=== PATIENT | male | born 2000 ===

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

== ENCOUNTER 2019-07-13 00:50 | Emergency (ER) | payer BC ==
--- NOTE | 2019-07-13 03:37 | ED ---
Head Injury - HPI Summary HPI Summary: This pt is a 19 Y/O M presenting to [facility] with a CC of a head injury that is currently rated a 2/10 in severity that occurred during ice skating. The fall was witnessed by his friend who states that he fell sideways and his head ricocheted off the ground. He states that he stopped skating after the incident and then started skating again afterwards. He denies any nausea, vomiting, decreased sensations, photophobia, and confusion. He states that he is able to remember the entire event and states that he did not lose any consciousness. He states that he isnt having any balance issues. His friend states that initially the pt was unable to hold a conversation. He has no aggravating or alleviating factors. He has no pertinent PMHx or FHx. He states that he occasionally drinks alcohol on the weekends. - History Of Current Complaint Chief Complaint: EDHeadInjury Stated Complaint: HEAD LAC PER PT Hx Obtained From: Patient, Family/Forestry Pilot - friend Mechanism Of Injury: Blunt Trauma, Fall From A Standing Position Onset/Duration: Started Hours Ago, Still Present Onset of Pain: Immediate Severity Currently: Mild Severity Initially: Moderate Pain Intensity: 2 Pain Scale Used: 0-10 Numeric Location of Head Injury: Frontal Location: Discrete At: Aggravating Factor(s): Other: - nothing Alleviating Factor(s): Other: - nothing Associated Signs And Symptoms: Negative - nausea, vomiting, decreased sensations , photophobia, and confusion, Memory Loss, Headache - Allergies/Home Medications Allergies/Adverse Reactions: Allergies Allergy/AdvReac Type Severity Reaction Status Date / Time No Known Allergies Allergy Verified 07/11/17 12:07 PMH/Surg Hx/FS Hx/Imm Hx Previously Healthy: Yes Endocrine/Hematology History: Denies: Hx Diabetes Cardiovascular History: Denies: Hx Hypertension Sensory History: Denies: Hx Contacts or Glasses, Hx Legally Blind, Hx Deafness, Hx Hearing Aid Opthamlomology History: Denies: Hx Contacts or Glasses, Hx Legally Blind Psychiatric History: Reports: Hx Anxiety, Hx Depression, Hx Community Mental Health Tx - Counselor at [facility] and Private therapist in [place] Denies: Hx Eating Disorder, Hx of Violent Episodes Against Others - Surgical History Surgical History: None - Immunization History Date of Tetanus Vaccine: utd Date of Influenza Vaccine: none Immunizations Up to Date: Yes Infectious Disease History: No Infectious Disease History: Denies: Traveled Outside the US in Last 30 Days - Family History Known Family History: Positive: Other - depression Negative: Cardiac Disease, Hypertension - Social History Occupation: Student - [employer] Lives: Dormitory/Roommates Alcohol Use: Occasionally Alcohol Amount: weekends Hx Substance Use: Yes Substance Use Type: Reports: Marijuana Hx Tobacco Use: No Smoking Status (MU): Never Smoked Tobacco Review of Systems Positive: Other - confusion Negative: Photophobia Negative: Vomiting, Nausea Positive: Headache. Negative: Weakness, Numbness, Syncope All Other Systems Reviewed And Are Negative: Yes Physical Exam - Summary Physical Exam Summary: Appearance: Well-appearing, Well-nourished, lying in bed comfortably Skin: Warm, dry, no obvious rash, superficial 1 cm laceration about the R eyebrow Eyes: sclera anicteric, no conjunctival pallor ENT: mucous membranes moist, pharynx appears normal Neck: Supple, nontender Respiratory: Clear to auscultation, no signs of respiratory distress Cardiovascular: Normal S1, S2. No murmurs. Normal distal pulses in tibial and radial bilaterally. Abdomen: Soft, nontender, normal active bowel sounds present Musculoskeletal: Normal, Strength/ROM Intact Neurological: A&Ox3, awake and alert, mentation is normal, speech is fluent and appropriate Psychiatric: affect is normal, does not appear anxious or depressed Triage Information Reviewed: Yes Vital Signs On Initial Exam: Initial Vitals Temp Pulse Resp BP Pulse Ox 97.8 F 73 18 114/73 97 07/13/19 00:52 07/13/19 00:52 07/13/19 00:52 07/13/19 00:52 07/13/19 00:52 Vital Signs Reviewed: Yes Procedures - Sedation Patient Received Moderate/Deep Sedation with Procedure: No Diagnostics - Vital Signs Vital Signs Temp Pulse Resp BP Pulse Ox 07/13/19 00:52 97.8 F 73 18 114/73 97 - Laboratory Lab Statement: Any lab studies that have been ordered have been reviewed, and results considered in the medical decision making process. Head Injury Course/Dx Course Of Treatment: This pt is a 19 Y/O M presenting to [facility] with a CC of a head injury that occurred during ice skating. The fall was witnessed by his friend who states that he fell sideways and his head ricocheted off the ground. He states that he stopped skating after the incident and then started skating again afterwards. He denies any nausea, vomiting, decreased sensations, photophobia, and confusion. His PE found that he had a 1 cm laceration about the R eyebrow. He will be discharged home with a DX of a concussion. - Diagnoses Provider Diagnoses: Concussion Discharge ED - Sign-Out/Discharge Documenting (check all that apply): Patient Departure - discharge - Discharge Plan Condition: Stable Disposition: HOME Patient Education Materials: Concussion (ED) Referrals: [facility] [Outside] - 1 Week No Primary Care Phys,[facility] [Primary Care Provider] - - Billing Disposition and Condition Condition: STABLE Disposition: Home - Attestation Statements Document Initiated by Scribe: Yes Documenting Scribe: Anuj Sevilla Provider For Whom Dyllan is Documenting (Include Credential): Manpreet Juarez MD Scribe Attestation: Anuj Valerio, scribed for Manpreet Juarez MD on 07/13/19 at 1945. Scribe Documentation Reviewed: Yes Provider Attestation: The documentation as recorded by the Anuj vargas accurately reflects the service I personally performed and the decisions made by Manpreet velasco MD Status of Scribe Document: Viewed
[2019-07-13 04:15] VITALS: BP 129/66
== END 2019-07-13 04:01 | disposition home or self-care (01) ==
LOC: ED 00:50
DX: S06.0X9A Concussion with loss of consciousness of unspecified duration, initial encounter (principal); V00.211A Fall from ice-skates, initial encounter; Y93.21 Activity, ice skating; Y92.330 Ice skating rink (indoor) (outdoor) as the place of occurrence of the external cause
CPT/HCPCS: 99282